=== PATIENT | female | born 1935 | race Hispanic/Latino ===

== ENCOUNTER 2017-02-01 13:00 | Inpatient (IN) | payer MEDICARE ==
--- NOTE | 2017-02-01 13:21 | ED PDOC ---
Arrival/HPI - General Chief Complaint: Shortness Of Breath Time Seen by Provider: 02/01/17 13:05 Historian: Patient - History of Present Illness Narrative History of Present Illness (Text): 02/01/17 13:19 81 year old female whose past medical history includes hypertension, hypercholesterolemia, TIA, and osteoporosis presents to the emergency department with left sided numbness since 05:30 this morning. She states she feels numbness on the left side of the face and the left arm. She reports dizziness and headache yesterday. Denies fever. PMD: Dr. Stark 02/01/17 21:27 Time/Duration: 4-6 hours Symptom Onset: Sudden Symptom Course: Unchanged Modifying Factors (Text): None Past Medical History - Provider Review Nursing Documentation Reviewed: Yes - Infectious Disease Hx of Infectious Diseases: None - Reproductive Menopause: Yes - Cardiac Hx Hypertension: Yes Hx Pacemaker: No - Neurological Hx Paralysis: No - Hematological/Oncological Hx Blood Transfusions: No Hx Blood Transfusion Reaction: No - Musculoskeletal/Rheumatological Hx Falls: (fell today, tripped) - Gastrointestinal Hx Gastroesophageal Reflux: Yes - Psychiatric Hx Substance Use: No - Surgical History Hx Appendectomy: Yes (19 yrs old) - Anesthesia Hx Anesthesia Reactions: No Hx Malignant Hyperthermia: No - Suicidal Assessment Feels Threatened In Home Enviroment: No Family/Social History - Physician Review Nursing Documentation Reviewed: Yes Family/Social History: Unknown Family HX Smoking Status: Never Smoked Hx Alcohol Use: No Hx Substance Use: No Hx Substance Use Treatment: No Allergies/Home Meds Allergies/Adverse Reactions: Allergies No Known Allergies Allergy (Verified 09/21/13 09:29) Home Medications: Home Meds Medication Instructions Recorded Confirmed Multivitamin and Minerals1 1 tab PO DAILY 09/21/13 02/01/17 [Centrum] Omeprazole 20 mg PO DAILY 09/21/13 02/01/17 Raloxifene HCl [Evista] 60 mg PO DAILY 09/21/13 02/01/17 Simvastatin 20 mg PO DAILY 09/21/13 02/01/17 Valsartan/Hydrochlorothiazide 1 tab PO DAILY 09/21/13 02/01/17 [Valsartan and Hydrochlorothiazide 12.5 mg-80 ] Aspirin [Aspirin Chewable] 81 mg PO DAILY 02/01/17 02/01/17 Review of Systems - Physician Review All systems were reviewed & negative as marked: Yes - Review of Systems Constitutional: absent: Fevers Gastrointestinal: absent: Abdominal Pain Neurological: Headache, Dizziness, Other (Numbness to left face and left arm) Physical Exam Vital Signs Reviewed: Yes Vital Signs Temp Pulse Resp BP Pulse Ox 02/01/17 16:16 98.5 F 60 17 142/60 99 02/01/17 15:04 62 17 141/58 L 96 02/01/17 13:01 98.4 F 77 19 145/77 97 Blood Pressure: Normal Pulse: Regular Respiratory Rate: Normal Appearance: Positive for: Well-Appearing, Non-Toxic, Comfortable Pain Distress: None Mental Status: Positive for: Alert and Oriented X 3 - Systems Exam Head: Present: Atraumatic, Normocephalic Pupils: Present: PERRL Extroacular Muscles: Present: EOMI Conjunctiva: Present: Normal Mouth: Present: Moist Mucous Membranes Neck: Present: Normal Range of Motion Respiratory/Chest: Present: Clear to Auscultation, Good Air Exchange. No: Respiratory Distress, Accessory Muscle Use Cardiovascular: Present: Regular Rate and Rhythm, Normal S1, S2. No: Murmurs Abdomen: Present: Normal Bowel Sounds. No: Tenderness, Distention, Peritoneal Signs Back: Present: Normal Inspection Upper Extremity: Present: Normal Inspection. No: Cyanosis, Edema Lower Extremity: Present: Normal Inspection. No: Edema Neurological: Present: GCS=15, CN II-XII Intact, Speech Normal, Motor Func Grossly Intact, Normal Sensory Function Skin: Present: Warm, Dry, Normal Color. No: Rashes Psychiatric: Present: Alert, Oriented x 3, Normal Insight, Normal Concentration Medical Decision Making ED Course and Treatment: Impression: 81 year old female whose past medical history includes hypertension , hypercholesterolemia, TIA, and osteoporosis presents to the emergency department with left sided numbness since 05:30 this morning. Differential Diagnosis include but are not limited to: Plan: -- CT Head, EKG, Chest X-ray -- Labs -- Reassess and disposition Prior Visits: Notes and results from previous visits were reviewed. Patient last seen in ED on 12/12/13 for back pain and admitted for compression fracture. Progress Notes: CT Head Dial Polisher: Joshua Durán MD IMPRESSION: No acute findings. Chest X-ray Dial Polisher: Joshua Durán MD IMPRESSION: No active disease 02/01/17 14:25 Labs and imaging negative. Case discussed with Dr. Downs, requests inpatient admission. 02/01/17 14:[address] Barraza who does not come to this institution anymore. Discussed with Dr. Downs who requests Dr. Steele. Patient updated. - Lab Interpretations Lab Results: 02/01/17 13:25 02/01/17 13:25 Lab Results 02/01/17 13:25: Blood Type B POSITIVE, Antibody Screen Negative, BBK History Checked No verified bt 02/01/17 13:25: Sodium 138, Potassium 3.9, Chloride 105, Carbon Dioxide 26, Anion Gap 11, BUN 17, Creatinine 0.8, Est GFR ( Amer) > 60, Est GFR (Non- Af Amer) > 60, Random Glucose 140 H, Calcium 9.4, Total Bilirubin 0.3, AST 24, ALT 23, Alkaline Phosphatase 50, Lactate Dehydrogenase 376, Total Creatine Kinase 36, Troponin I < 0.01, Total Protein 5.9, Albumin 3.5, Globulin 2.5, Albumin/Globulin Ratio 1.4, Triglycerides 97, Cholesterol 143, LDL Cholesterol Direct 53, HDL Cholesterol 71 H 02/01/17 13:25: PT 11.7, INR 1.08, APTT 23.6 L 02/01/17 13:25: WBC 6.4, RBC 3.83, Hgb 10.9 L, Hct 34.4 L, MCV 89.8, MCH 28.5, MCHC 31.7, RDW 12.8, Plt Count 169, MPV 11.6 H, Gran % 67.4, Lymph % (Auto) 25.8 , [place] % (Auto) 5.4, Eos % (Auto) 1.1 L, Baso % (Auto) 0.3, Gran # 4.34, Lymph # 1.7, [place] # 0.4, Eos # 0.1, Baso # 0.02 - RAD Interpretation Radiology Orders: 02/01/17 13:18 HEAD W/O CONTRAST [CT] Stat CHEST ONE VIEW [RAD] Stat - EKG Interpretation Interpreted by ED Physician: Yes (EKG shows NSR at 81 BPM, no ST/T wave changes) Type: 12 lead EKG - Medication Orders Current Medication Orders: Acetaminophen (Tylenol 325mg Tab) 650 mg PO Q4H PRN PRN Reason: Pain, moderate (4-7) Last Admin: 02/01/17 20:48 Dose: 650 mg Aspirin (Aspirin) 325 mg PO DAILY CALLIE Discontinued Medications Aspirin (Aspirin) 325 mg PO STAT STA Stop: 02/01/17 14:24 Last Admin: 02/01/17 15:11 Dose: 325 mg NIHSS Scale ([place]) Time Performed: 13:18 - How Severe is the Stoke Baseline Level of Consciousness: 0=Alert LOC to Questions: 0=Both comments correct LOC to commands: 0=Obeys both correctly Best Gaze: 0=Normal Visual: 0=No visual loss Facial: 0=Normal Motor Arm - Left: 0=No drift Motor Arm - Right: 0=No drift Motor Leg - Left: 0=No drift Motor Leg - Right: 0=No drift Limb Ataxia: 0=Absent Sensory: 0=Normal Best Language: 0=No aphasia Dysarthia: 0=Normal articulation Extinction & Inattention (Neglect): 0=Normal, no object Score: 0 Risk Level: No Stroke Risk rTPA Inclusion/Exclusion - Refusal of Treatment Patient Refused Treatment: No - Inclusion Criteria for Altepase Patient is 18 years or Older: Yes The Clinical Diagnosis of Ischemic Stroke That is Causing a Potentially Disabling Neurological Deficit: No Time of Onset is Well Established to be Less Than 270 Minute Before Treatment Would Begin: No Risk/Benefit Discussed With Patient/Family Member Present: Yes - Scribe Statement The provider has reviewed the documentation as recorded by the China Holland Provider Scribe Attestation: All medical record entries made by the [place] were at my direction and personally dictated by me. I have reviewed the chart and agree that the record accurately reflects my personal performance of the history, physical exam, medical decision making, and the department course for this patient. I have also personally directed, reviewed, and agree with the discharge instructions and disposition. Disposition/Present on Arrival - Present on Arrival Any Indicators Present on Arrival: No History of DVT/PE: No History of Uncontrolled Diabetes: No Urinary Catheter: No History of Decub. Ulcer: No History Surgical Site Infection Following: None - Disposition Have Diagnosis and Disposition been Completed?: Yes Diagnosis: Numbness Disposition: HOSPITALIZED Disposition Time: 03:00 Patient Problems: Current Active Problems Problem Status Onset Numbness Acute Condition: STABLE
--- NOTE | 2017-02-01 13:48 | CT ---
PROCEDURE: CT HEAD WITHOUT CONTRAST. HISTORY: left side numbness COMPARISON: 12/12/2013 TECHNIQUE: Axial computed tomography images were obtained through the head/brain without intravenous contrast. Radiation dose: Total exam DLP = 688 mGy-cm. This CT exam was performed using one or more of the following dose reduction techniques: Automated exposure control, adjustment of the mA and/or kV according to patient size, and/or use of iterative reconstruction technique. FINDINGS: HEMORRHAGE: No intracranial hemorrhage. BRAIN: No mass effect or edema. No atrophy or chronic microvascular ischemic changes. VENTRICLES: Unremarkable. No hydrocephalus. CALVARIUM: Unremarkable. PARANASAL SINUSES: Unremarkable as visualized. No significant inflammatory changes. MASTOID AIR CELLS: Unremarkable as visualized. No inflammatory changes. OTHER FINDINGS: None. IMPRESSION: Normal CT of the Head.
[2017-02-01 13:59] LABS: ALB/GLOB RATIO 1.4 (1.1-1.8); ALBUMIN 3.5 g/dL (3.0-4.8); ALT/SGPT 23 U/L (7-56); AST/SGOT 24 U/L (15-39); BLOOD UREA NITROGEN 17 mg/dL (7-21); CALCIUM 9.4 mg/dL (8.4-10.5); GFR AFRICAN-AMERICAN > 60; GFR NON-AFRICAN AMERICAN > 60; HDL CHOLESTEROL 71 mg/dL (29-60); INR 1.08 (0.93-1.08); PARTIAL THROMBOPLASTIN TIME 23.6 Seconds (23.7-30.8); PROTHROMBIN TIME 11.7 Seconds (9.9-11.8)
[2017-02-01 14:04] LABS: BASO # 0.02 K/mm3 (0.0-2.0); BASO % 0.3 % (0.0-3.0); EOS # 0.1 (0.0-0.7); EOS % 1.1 % (1.5-5.0); GRAN # 4.34 (1.4-6.5); GRAN % 67.4 % (50.0-68.0); HEMOGLOBIN 10.9 gm/dL (12.0-16.0); LYMPH # 1.7 (1.2-3.4); LYMPH % 25.8 % (22.0-35.0); MEAN CELL VOLUME 89.8 fL (80.0-105.0); MEAN CORPUSCULAR HEMOGLOBIN 28.5 pg (25.0-35.0); MEAN CORPUSCULAR HGB CONC 31.7 g/dl (31.0-37.0); MEAN PLATELET VOLUME 11.6 fl (7.0-11.0); MONO # 0.4 (0.1-0.6); MONO % 5.4 % (1.0-6.0); PLATELET COUNT 169 10^3/uL (120.0-450.0); RBC 3.83 10^6/uL (3.5-6.1); RED CELL DISTRIBUTION WIDTH 12.8 % (11.5-14.5); WHITE BLOOD COUNT 6.4 10^3/ul (4.5-11.0)
--- NOTE | 2017-02-01 14:09 | RAD ---
PROCEDURE: CHEST RADIOGRAPH, 1 VIEW HISTORY: weakness COMPARISON: 05/18/2016 FINDINGS: LUNGS: Clear. PLEURA: No pneumothorax or pleural fluid seen. CARDIOVASCULAR: Normal. OSSEOUS STRUCTURES: No significant abnormalities. VISUALIZED UPPER ABDOMEN: Normal. OTHER FINDINGS: None. IMPRESSION: No active disease.
[2017-02-01 14:10] LABS: LDL CHOLESTEROL 53 mg/dL (0-129)
[2017-02-01 14:13] LABS: TROPONIN I < 0.01 ng/mL
[2017-02-01 14:55] LABS: URINE BILIRUBIN NEGATIVE (NEGATIVE); URINE BLOOD NEGATIVE (NEGATIVE); URINE GLUCOSE (UA) NEGATIVE (NEGATIVE); URINE LEUKOCYTE ESTERASE MODERATE Leu/uL (NEGATIVE); URINE NITRATE NEGATIVE (NEGATIVE); URINE PROTEIN NEGATIVE mg/dL (<30 mg/dL); URINE UROBILINOGEN 0.2 E.U./dL (<1 E.U./dL)
[2017-02-01 15:03] LABS: URINE APPEARANCE SL CLOUDY (CLEAR); URINE COLOR YELLOW (YELLOW)
[2017-02-01 15:11] LABS: URINE RBC NEGATIVE /hpf (0-2)
[2017-02-01 17:44] VITALS: BMI 22.3
--- NOTE | 2017-02-01 19:59 | CARD ---
APPROVED REPORT EKG Measurement Heart [id number] <Conclusion> Sinus rhythm with premature supraventricular complexes Otherwise normal ECG
[2017-02-02] MEDS ORDERED: Pantoprazole 40 mg EC Tab PO ONE (17:23)
[2017-02-03 06:27] VITALS: O2SAT 98
[2017-02-03] MEDS ORDERED: Pantoprazole 40 mg EC Tab PO SCH (06:30)
--- NOTE | 2017-02-03 10:07 | US ---
PROCEDURE: Bilateral carotid artery duplex ultrasound HISTORY: Carotid stenosis PHYSICIAN(S): Rico Gaviria MD. TECHNIQUE: Duplex sonography and color-flow Doppler were used to evaluate the carotid bifurcations and limited segments of the vertebral arteries bilaterally. FINDINGS: There is mild smooth heterogeneous plaque noted at the carotid bifurcations bilaterally. The peak systolic velocity in the proximal right internal carotid artery is 96 cm/sec. This corresponds to a 20 to 39% proximal right ICA stenosis. Normal systolic velocities are noted in the proximal right external carotid artery. There is antegrade flow in the right vertebral artery. The peak systolic velocity in the proximal left internal carotid artery is 94 cm/sec. This corresponds to a 20 to 39% proximal left ICA stenosis. Normal systolic velocities are noted in the proximal left external carotid artery. There is antegrade flow in the left vertebral artery. IMPRESSION: 1. Bilateral 20-39% proximal ICA stenoses. 2. Antegrade flow in both vertebral arteries.
[2017-02-03 11:51] VITALS: BP 120/61; PULSE 59; RESP 16; TEMP 98.6
== END 2017-02-03 14:25 | disposition home or self-care (01) | DRG 69 ==
LOC: ED 13:00 → ERH 14:24 → 2RSO 17:00
PROVIDERS: ADMIT Internal Medicine Nephrology; ATTEND Internal Medicine Nephrology
DX: G45.9 Transient cerebral ischemic attack, unspecified (principal); K27.9 Peptic ulcer, site unspecified, unspecified as acute or chronic, without hemorrhage or perforation; I10 Essential (primary) hypertension; F41.9 Anxiety disorder, unspecified; E78.00 Pure hypercholesterolemia, unspecified; M81.0 Age-related osteoporosis without current pathological fracture; K21.9 Gastro-esophageal reflux disease without esophagitis; R40.2412 Glasgow coma scale score 13-15, at arrival to emergency department; Z79.899 Other long term (current) drug therapy; Z90.49 Acquired absence of other specified parts of digestive tract; Z79.82 Long term (current) use of aspirin; Z86.73 Personal history of transient ischemic attack (TIA), and cerebral infarction without residual deficits